=== PATIENT | male | born 1980 | race Caucasian/White ===

== ENCOUNTER 2018-01-08 13:45 | Observation (INO) | payer BC, OTHER ==
[~2018-01-08] VITALS: Ht 172.7 cm; Wt 65.0 kg
[~2018-01-08 13:45] MED LIST: Z.0.NO CURRENT MEDS
[2018-01-08 13:53] VITALS: BP 127/68; PULSE 83; RESP 20; TEMP 98.4; O2SAT 97
[2018-01-08 14:39] LABS: AUTOMATED NEUTROPHIL # 8.3 TH/MM3 (1.8-7.7); BASOPHIL % 0.3 % (0.0-2.0); EOSINOPHIL # 0.1 TH/MM3 (0-0.4); EOSINOPHIL % 0.6 % (0.0-4.0); HEMATOCRIT 39.9 % (39.0-51.0); HEMOGLOBIN 12.6 GM/DL (13.0-17.0); LYMPH % 21.7 % (9.0-44.0); LYMPHOCYTE # 2.6 TH/MM3 (1.0-4.8); MEAN CELL VOLUME 63.3 FL (80.0-100.0); MEAN CORPUSCULAR HEMOGLOBIN 19.9 PG (27.0-34.0); MEAN CORPUSCULAR HGB CONC 31.5 % (32.0-36.0); MEAN PLATELET VOLUME 8.2 FL (7.0-11.0); MONO % 9.6 % (0.0-8.0); MONOCYTE # 1.2 TH/MM3 (0-0.9); NEUT % 67.8 % (16.0-70.0); PLATELET COUNT 298 TH/MM3 (150-450); RED BLOOD COUNT 6.31 MIL/MM3 (4.50-5.90); WHITE BLOOD COUNT 12.2 TH/MM3 (4.0-11.0)
[2018-01-08 14:58] LABS: BLOOD UREA NITROGEN 13 MG/DL (7-18); CALCIUM 9.6 MG/DL (8.5-10.1); CHLORIDE 103 MEQ/L (98-107); CREATININE 1.04 MG/DL (0.60-1.30); GLOMERULAR FILTRATION RATE 80 ML/MIN (>89); GLUCOSE,RANDOM 85 MG/DL (74-106); SODIUM (NA) 140 MEQ/L (136-145)
[2018-01-08 15:02] LABS: TROPONIN I LESS THAN 0.02 NG/ML (0.02-0.05)
[2018-01-08 15:13] VITALS: BP_SYST 141; BP_SYST 143; BP_DIAS 76; BP_DIAS 86; PULSE 65; RESP 17; O2SAT 99
--- NOTE | 2018-01-08 15:40 | RADRPT ---
EXAM DATE: 01/08/2018 3:07 PM EDT AGE/SEX: 37 years / Male INDICATIONS: Chest pain and syncope. CLINICAL DATA: This is the patient's initial encounter. Patient reports that signs and symptoms have been present for 1 day and indicates a pain score of 6/10. MEDICAL/SURGICAL HISTORY: None. None. COMPARISON: No prior [place] exams available for comparison. FINDINGS: PA and lateral views of the chest demonstrate the lungs to be symmetrically aerated without evidence of mass, infiltrate or effusion. The cardiomediastinal contours are unremarkable. Osseous structures are intact. CONCLUSION: Negative examination. Electronically signed by: Tr Orr MD 01/08/2018 3:39 PM EDT
--- NOTE | 2018-01-08 16:47 | PD ---
HPI Chief Complaint: Cardiac Complaint Time Seen by Provider: 15:06 Travel History International Travel<30 days: No Contact w/Intl Traveler<30days: No Traveled to known affect area: No History of Present Illness HPI Patient is a 37-year-old male who presents the emergency room with complaints of chest pain. Patient reports that he began to have chest pain while at work today, reports that chest pain initially felt sharp and stabbing but now feels like pressure to his chest. Patient reports that he has been having shortness of breath with the symptoms. Reports that he has troubles with taking deep breath along with this chest pain. Patient reports that chest pain goes from his sub-sternum and radiates to his back, reports that nothing makes pain better or worse. Patient denies history of PE or DVT, patient is a smoker. Patient denies any history of hypertension or hyperlipidemia. Patient reports remote history of arrhythmia in the past. Patient with no family history of ACS or early SD. PFSH Past Medical History Heart Rhythm Problems: Yes Diminished Hearing: No Tetanus Vaccination: Unknown Influenza Vaccination: No Past Surgical History Surgical History: No Previous Surgery Social History Alcohol Use: Yes (2 DRINKS A WEEK) Tobacco Use: Yes (<1 ppd) Substance Use: No Allergies-Medications (Allergen,Severity, Reaction): Coded Allergies: No Known Allergies (Verified Adverse Reaction, Unknown, 01/08/18) Reported Meds & Prescriptions Reported Meds & Active Scripts Active No Active Prescriptions or Reported Medications Review of Systems General / Constitutional: No: Fever Eyes: No: Visual changes HENT: No: Headaches Cardiovascular: Positive: Chest Pain or Discomfort, Palpitations Respiratory: Positive: Shortness of Breath Gastrointestinal: No: Abdominal Pain Genitourinary: No: Dysuria Musculoskeletal: No: Pain Skin: No Rash Neurologic: No: Weakness Psychiatric: No: Depression Endocrine: No: Polydipsia Hematologic/Lymphatic: No: Easy Bruising Physical Exam Narrative GENERAL: NAD SKIN: Focused skin assessment warm/dry. HEAD: Atraumatic. Normocephalic. EYES: Pupils equal and round. No scleral icterus. No injection or drainage. ENT: No nasal bleeding or discharge. Mucous membranes pink and moist. NECK: Trachea midline. No JVD. CARDIOVASCULAR: Regular rate and rhythm. No murmur appreciated. RESPIRATORY: No accessory muscle use. Clear to auscultation. Breath sounds equal bilaterally. GASTROINTESTINAL: Abdomen soft, non-tender, nondistended. Hepatic and splenic margins not palpable. MUSCULOSKELETAL: No obvious deformities. No clubbing. No cyanosis. No edema. NEUROLOGICAL: Awake and alert. No obvious cranial nerve deficits. Motor grossly within normal limits. Normal speech. PSYCHIATRIC: Appropriate mood and affect; insight and judgment normal. Data Data Last Documented VS Vital Signs Date Time Temp Pulse Resp B/P (MAP) Pulse Ox O2 Delivery O2 Flow Rate FiO2 01/08/18 17:12 68 16 145/81 (102) 99 Room Air 01/08/18 13:53 98.4 Orders Orders Electrocardiogram (01/08/18 13:55) Complete Blood Count With Diff (01/08/18 13:55) Basic Metabolic Panel (Bmp) (01/08/18 13:55) Ckmb (Isoenzyme) Profile (01/08/18 13:55) Troponin I (01/08/18 13:55) Chest, Pa & Lat (01/08/18 13:55) CKMB (01/08/18 14:18) CKMB% (01/08/18 14:18) Electrocardiogram (01/08/18 ) Drug Screen, Random Urine (01/08/18 15:10) D-Dimer (01/08/18 15:10) Admit Order (Ed Use Only) (01/08/18 18:07) Aspirin Chew (Aspirin Chew) (01/08/18 18:15) Activity Bed Rest With Brp (01/08/18 18:08) Vital Signs (Adult) Q4H (01/08/18 18:08) Cardiac Rhythm .As Directed (01/08/18 18:08) Notify Dr: Other .PRN (01/08/18 18:08) Notify Parameters (01/08/18 18:08) Resp Oxygen Nasal Cannula (01/08/18 ) Diet Npo (01/08/18 Dinner) Ckmb (Isoenzyme) Profile (01/08/18 18:08) Ckmb (Isoenzyme) Profile (01/08/18 21:08) Troponin I (01/08/18 18:08) Troponin I (01/08/18 21:08) Electrocardiogram (01/08/18 18:08) Electrocardiogram (01/08/18 21:08) ^ Obtain (01/08/18 18:08) [employer] / Telemetry DILSHAD.Q8H (01/08/18 18:08) Labs Laboratory Tests Test 01/08/18 14:18 01/08/18 15:55 White Blood Count 12.2 TH/MM3 Red Blood Count 6.31 MIL/MM3 Hemoglobin 12.6 GM/DL Hematocrit 39.9 % Mean Corpuscular Volume 63.3 FL Mean Corpuscular Hemoglobin 19.9 PG Mean Corpuscular Hemoglobin Concent 31.5 % Red Cell Distribution Width 16.0 % Platelet Count 298 TH/MM3 Mean Platelet Volume 8.2 FL Neutrophils (%) (Auto) 67.8 % Lymphocytes (%) (Auto) 21.7 % Monocytes (%) (Auto) 9.6 % Eosinophils (%) (Auto) 0.6 % Basophils (%) (Auto) 0.3 % Neutrophils # (Auto) 8.3 TH/MM3 Lymphocytes # (Auto) 2.6 TH/MM3 Monocytes # (Auto) 1.2 TH/MM3 Eosinophils # (Auto) 0.1 TH/MM3 Basophils # (Auto) 0.0 TH/MM3 CBC Comment DIFF FINAL Differential Comment Blood Urea Nitrogen 13 MG/DL Creatinine 1.04 MG/DL Random Glucose 85 MG/DL Calcium Level 9.6 MG/DL Sodium Level 140 MEQ/L Potassium Level 4.6 MEQ/L Chloride Level 103 MEQ/L Carbon Dioxide Level 28.0 MEQ/L Anion Gap 9 MEQ/L Estimat Glomerular Filtration Rate 80 ML/MIN Total Creatine Kinase 186 U/L Creatine Kinase MB 1.8 NG/ML Troponin I LESS THAN 0.02 NG/ML D-Dimer Quantitative (PE/DVT) LESS THAN 0.19 MG/L FEU MDM Medical Decision Making Medical Screen Exam Complete: Yes Emergency Medical Condition: Yes Medical Record Reviewed: Yes Interpretation(s) EKG at 1407: NSR at 74bpm, qt/qtc: 352/380, hyperacute t waves Vital Signs Date Time Temp Pulse Resp B/P (MAP) Pulse Ox O2 Delivery O2 Flow Rate FiO2 01/08/18 15:13 65 17 141/76 (97) 99 Room Air 143/86 (105) 01/08/18 13:53 98.4 83 20 127/68 (87) 97 Differential Diagnosis ACS, arrhythmia, PE, aortic dissection, pneumothorax, pneumonia Narrative Course During the course of the patients emergency department visit, the patients history, examination, and differential diagnosis were reviewed with the patient. The patient was placed on a playground monitor with oximetry and frequent blood pressure monitoring. The patient had an IV access obtained and blood work sent for analysis. The patient was initially provided aspirin The patients laboratory studies were reviewed and remarkable for Laboratory Tests Test 01/08/18 14:18 01/08/18 15:55 White Blood Count 12.2 TH/MM3 (4.0-11.0) Red Blood Count 6.31 MIL/MM3 (4.50-5.90) Hemoglobin 12.6 GM/DL (13.0-17.0) Hematocrit 39.9 % (39.0-51.0) Mean Corpuscular Volume 63.3 FL (80.0-100.0) Mean Corpuscular Hemoglobin 19.9 PG (27.0-34.0) Mean Corpuscular Hemoglobin Concent 31.5 % (32.0-36.0) Red Cell Distribution Width 16.0 % (11.6-17.2) Platelet Count 298 TH/MM3 (150-450) Mean Platelet Volume 8.2 FL (7.0-11.0) Neutrophils (%) (Auto) 67.8 % (16.0-70.0) Lymphocytes (%) (Auto) 21.7 % (9.0-44.0) Monocytes (%) (Auto) 9.6 % (0.0-8.0) Eosinophils (%) (Auto) 0.6 % (0.0-4.0) Basophils (%) (Auto) 0.3 % (0.0-2.0) Neutrophils # (Auto) 8.3 TH/MM3 (1.8-7.7) Lymphocytes # (Auto) 2.6 TH/MM3 (1.0-4.8) Monocytes # (Auto) 1.2 TH/MM3 (0-0.9) Eosinophils # (Auto) 0.1 TH/MM3 (0-0.4) Basophils # (Auto) 0.0 TH/MM3 (0-0.2) CBC Comment DIFF FINAL Differential Comment Blood Urea Nitrogen 13 MG/DL (7-18) Creatinine 1.04 MG/DL (0.60-1.30) Random Glucose 85 MG/DL (74-106) Calcium Level 9.6 MG/DL (8.5-10.1) Sodium Level 140 MEQ/L (136-145) Potassium Level 4.6 MEQ/L (3.5-5.1) Chloride Level 103 MEQ/L (98-107) Carbon Dioxide Level 28.0 MEQ/L (21.0-32.0) Anion Gap 9 MEQ/L (5-15) Estimat Glomerular Filtration Rate 80 ML/MIN (>89) Total Creatine Kinase 186 U/L (39-308) Creatine Kinase MB 1.8 NG/ML (0.5-3.6) Troponin I LESS THAN 0.02 NG/ML D-Dimer Quantitative (PE/DVT) LESS THAN 0.19 MG/L FEU Radiology studies were reviewed and remarkable for Last Impressions Chest X-Ray 01/08/18 1355 Signed Impressions: CONCLUSION: Negative examination. Plan to admit for chest pain obs.. Diagnosis Primary Impression: Chest pain Qualified Codes: R07.9 - Chest pain, unspecified Admitting Information Admitting Physician Requests: Observation Scripts No Active Prescriptions or Reported Meds Francisca Boo DO Jan 08, 2018 16:47
[2018-01-08 17:12] VITALS: BP 145/81; PULSE 68; RESP 16; O2SAT 99
[2018-01-08] MEDS ORDERED: ASPIRIN 81 MG CHEW TAB PO ONE (18:15)
[2018-01-08 19:08] LABS: TROPONIN I LESS THAN 0.02 NG/ML (0.02-0.05)
[2018-01-08 19:46] VITALS: BP 140/72; PULSE 59; RESP 16; TEMP 98.9; O2SAT 96
[2018-01-08 21:40] LABS: TROPONIN I LESS THAN 0.02 NG/ML (0.02-0.05)
[2018-01-08 23:00] VITALS: BP 118/65; PULSE 57; PULSE 59; RESP 16; TEMP 98.5; O2SAT 94
[2018-01-09 03:13] VITALS: BP 124/78; PULSE 67; RESP 16; TEMP 98.3; O2SAT 97
[2018-01-09 07:40] VITALS: PULSE 49
[2018-01-09 08:59] VITALS: BP 143/67; PULSE 61; RESP 18; TEMP 98; O2SAT 94
--- NOTE | 2018-01-09 10:04 | HHI.HP ---
HPI Primary Care Physician No Primary Care Physician Chief Complaint Chest pain History of Present Illness This is a 37-year-old male with history of tobacco abuse that presents to ED the private vehicle with a complaint of developing chest discomfort while he was at work yesterday. He also is short of breath with it. Describes a pressure in the center of his chest. Her more take in a deep breath. No nausea or diaphoresis. Denies prior cardiac workup. Currently denies chest discomfort. Review of Systems General: Patient denies fevers, chills, and recent travel. HEENT: Patient denies headache, sore throat, difficulty swallowing. Cardiovascular: Has the chest discomfort as mentioned above. Denies sensation of heart beating rapidly or irregularly. No syncope. Denies diaphoresis. Respiratory: He was short of breath. He also felt as if the discomfort worsened when he took in a deep breath. Denies coughing wheezing or hemoptysis. GI: Patient denies nausea, vomiting, diarrhea, abdominal pain, bloody stools. Musculoskeletal: Patient denies joint pain or edema. Denies calf pain or edema. Neurovascular: Patient denies numbness, tingling, weakness in extremities. Denies headache. Endocrine: Denies polyuria and polydipsia. Hematologic: Denies easy bruising. Skin: Denies rash or itching. Past Family Social History Allergies: Coded Allergies: No Known Allergies (Verified Adverse Reaction, Unknown, 01/08/18) Past Medical History Tobacco abuse. Denies hypertension, hyperlipidemia, diabetes, and known CAD. Past Surgical History Denies prior surgery. Reported Medications Reported Meds & Active Scripts Active No Active Prescriptions or Reported Medications Family History Denies family history of CAD. Social History States he smokes one half pack of cigarettes daily and has done so for about 20 years. Occasional alcohol. Denies illicit drug use. Physical Exam Vital Signs Vital Signs Date Time Temp Pulse Resp B/P (MAP) Pulse Ox O2 Delivery O2 Flow Rate FiO2 01/09/18 08:59 98.0 61 18 143/67 (92) 94 01/09/18 07:40 49 01/09/18 03:13 98.3 67 16 124/78 (93) 97 01/08/18 23:00 98.5 57 16 118/65 (82) 94 01/08/18 23:00 59 01/08/18 19:46 98.9 59 16 140/72 (94) 96 01/08/18 18:48 01/08/18 17:12 68 16 145/81 (102) 99 Room Air 01/08/18 15:13 65 17 141/76 (97) 99 Room Air 143/86 (105) 01/08/18 13:53 98.4 83 20 127/68 (87) 97 Physical Exam GENERAL: This is a well-nourished, well-developed patient, in no apparent distress. Patient speaks in clear complete sentences. Patient is pleasant. HEENT: Head is atraumatic and normocephalic. Neck is supple without lymphadenopathy and trachea is midline. No JVD or carotid bruits. CARDIOVASCULAR: Regular rate and rhythm without murmurs, gallops, or rubs. RESPIRATORY: Clear to auscultation. Breath sounds equal bilaterally. No wheezes , rales, or rhonchi. Chest wall is nontender. No use of accessory muscles. GASTROINTESTINAL: Abdomen is nontender, nondistended. Abdomen soft. No obvious pulsatile mass or bruit. No CVA tenderness. Strong femoral pulses bilaterally. Normal bowel sounds in all quadrants. MUSCULOSKELETAL: Patient is moving upper and lower extremities freely. No calf tenderness or edema, no Homans sign. Strong pulses in upper and lower extremities. NEUROLOGICAL: Patient is alert and oriented. Cranial nerves 2-12 are grossly intact. No focal deficits and speech is clear. SKIN: No rash and turgor is normal. Laboratory Laboratory Tests Test 01/08/18 14:18 01/08/18 15:55 01/08/18 18:26 01/08/18 20:30 White Blood Count 12.2 Red Blood Count 6.31 Hemoglobin 12.6 Hematocrit 39.9 Mean Corpuscular Volume 63.3 Mean Corpuscular Hemoglobin 19.9 Mean Corpuscular Hemoglobin Concent 31.5 Red Cell Distribution Width 16.0 Platelet Count 298 Mean Platelet Volume 8.2 Neutrophils (%) (Auto) 67.8 Lymphocytes (%) (Auto) 21.7 Monocytes (%) (Auto) 9.6 Eosinophils (%) (Auto) 0.6 Basophils (%) (Auto) 0.3 Neutrophils # (Auto) 8.3 Lymphocytes # (Auto) 2.6 Monocytes # (Auto) 1.2 Eosinophils # (Auto) 0.1 Basophils # (Auto) 0.0 CBC Comment DIFF FINAL Differential Comment Blood Urea Nitrogen 13 Creatinine 1.04 Random Glucose 85 Calcium Level 9.6 Sodium Level 140 Potassium Level 4.6 Chloride Level 103 Carbon Dioxide Level 28.0 Anion Gap 9 Estimat Glomerular Filtration Rate 80 Total Creatine Kinase 186 189 175 Creatine Kinase MB 1.8 1.2 1.4 Troponin I LESS THAN 0.02 LESS THAN 0.02 LESS THAN 0.02 D-Dimer Quantitative (PE/DVT) LESS THAN 0.19 Result Diagram: 01/08/18 1418 01/08/18 1418 Caprini VTE Risk Assessment Caprini VTE Risk Assessment: No/Low Risk (score <= 1) Caprini Risk Assessment Model Point Value = 1 Point Value = 2 Point Value = 3 Point Value = 5 Age 41-60 Minor surgery BMI > 25 kg/m2 Swollen legs Varicose veins or History of unexplained or recurrent spontaneous Oral contraceptives or hormone replacement Sepsis (< 1 month) Serious lung disease, including pneumonia (< 1 month) Abnormal pulmonary function Acute myocardial infarction Congestive heart failure (< 1 month) History of inflammatory bowel disease Medical patient at bed rest Age 61-74 Arthroscopic surgery Major open surgery (> 45 min) Laparoscopic surgery (> 45 min) Malignancy Confined to bed (> 72 hours) Immobilizing plaster cast Central venous access Age >= 75 History of VTE Family history of VTE Factor V Leiden Prothrombin [id number] Lupus anticoagulant Anticardiolipin antibodies Elevated serum homocysteine Heparin-induced thrombocytopenia Other congenital or acquired thrombophilia Stroke (< 1 month) Elective arthroplasty Hip, pelvis, or leg fracture Acute spinal cord injury (< 1 month) Prophylaxis Regimen Total Risk Factor Score Risk Level Prophylaxis Regimen 0-1 Low Early ambulation 2 Moderate Order ONE of the following: *Sequential Compression Device (SCD) *Heparin 5000 units SQ BID 3-4 Higher Order ONE of the following medications: *Heparin 5000 units SQ TID *Enoxaparin/Lovenox 40 mg SQ daily (WT < 150 kg, CrCl > 30 mL/min) *Enoxaparin/Lovenox 30 mg SQ daily (WT < 150 kg, CrCl > 10-29 mL/min) *Enoxaparin/Lovenox 30 mg SQ BID (WT < 150 kg, CrCl > 30 mL/min) AND/OR *Sequential Compression Device (SCD) 5 or more Highest Order ONE of the following medications: *Heparin 5000 units SQ TID (Preferred with Epidurals) *Enoxaparin/Lovenox 40 mg SQ daily (WT < 150 kg, CrCl > 30 mL/min) *Enoxaparin/Lovenox 30 mg SQ daily (WT < 150 kg, CrCl > 10-29 mL/min) *Enoxaparin/Lovenox 30 mg SQ BID (WT < 150 kg, CrCl > 30 mL/min) AND *Sequential Compression Device (SCD) Assessment and Plan Assessment and Plan * Chest pain: Patient has had serial cardiac enzymes and EKGs were ruling out purposes. He was seen by Dr. Yuri Falcon of cardiology in the chest pain center. He will undergo a Fidel protocol ETT. He would be discharged home if his stress test is nonischemic with instructions to follow-up with PCP. Return to ED for interval issues. * Tobacco abuse: Patient has been counseled on importance of smoking cessation. Patient is stable at this time. He is agreeable to this plan. Maciel Jay Jan 09, 2018 10:04
--- NOTE | 2018-01-09 10:05 | HHI.DCPOC ---
Discharge Care Plan Diagnosis: (1) Tobacco abuse (2) Chest pain Goals to Promote Your Health * To prevent worsening of your condition and complications * To maintain your health at the optimal level Directions to Meet Your Goals Take your medications as prescribed Follow your dietary instruction Follow activity as directed Keep your appointments as scheduled Take your immunizations and boosters as scheduled If your symptoms worsen call your PCP, if no PCP go to Urgent Care Center or Emergency Room Smoking is Dangerous to Your Health. Avoid second hand smoke Call the 24-hour hour crisis hotline for domestic abuse at Maciel Jay Jan 09, 2018 10:05
--- NOTE | 2018-01-09 14:33 | EKG ---
Date Performed: 01/08/2018 Time Performed: 22:57:27 PTAGE: 37 years EKG: SINUS BRADYCARDIA VOLTAGE CRITERIA FOR LVH ABNORMAL ECG PREVIOUS TRACING : 01/08/2018 19.45 Since previous tracing, no significant change noted DOCTOR: Yuri Falcon Interpretating Date/Time 01/09/2018 14:31:58
--- NOTE | 2018-01-09 14:34 | EKG ---
Date Performed: 01/08/2018 Time Performed: 19:45:26 PTAGE: 37 years EKG: SINUS BRADYCARDIA WITH SINUS ARRHYTHMIA POSSIBLE LEFT ATRIAL ENLARGEMENT POSSIBLE LEFT VENT RICULAR HYPERTROPHY ABNORMAL ECG PREVIOUS TRACING : 01/08/2018 18.20 Since previous tracing, no significant change noted DOCTOR: Yuri Falcon Interpretating Date/Time 01/09/2018 14:32:56
--- NOTE | 2018-01-09 14:35 | EKG ---
Date Performed: 01/08/2018 Time Performed: 18:20:48 PTAGE: 37 years EKG: Sinus rhythm WITH SINUS ARRHYTHMIA POSSIBLE LEFT ATRIAL ENLARGEMENT POSSIBLE LEFT VENTRICULAR HYPERTROPHY MINIMAL ST DEPRESSION ABNORMAL ECG PREVIOUS TRACING : 01/08/2018 14.07 Since previous tracing, no significant change noted DOCTOR: Yuri Falcon Interpretating Date/Time 01/09/2018 14:33:09
--- NOTE | 2018-01-09 14:36 | EKG ---
Date Performed: 01/08/2018 Time Performed: 14:07:52 PTAGE: 37 years EKG: Sinus rhythm POSSIBLE RIGHT ATRIAL ENLARGEMENT POSSIBLE LEFT ATRIAL ENLARGEMENT POSSIBLE LEFT VENTRICULAR HYPERTR OPHY ABNORMAL ECG PREVIOUS TRACING : 07/27/2011 15.36 Since previous tracing, no significant change noted DOCTOR: Yuri Falcon Interpretating Date/Time 01/09/2018 14:33:45
--- NOTE | 2018-01-09 14:37 | TR ---
Date Performed: 01/09/2018 Time Performed: 09:35:52 DOCTOR: Yuri Falcon DRUG LIST: CLINICAL HISTORY: CHEST PAIN REASON FOR TEST: REASON FOR ENDING: OBSERVATION: CONCLUSION: BAKARI PROTOCOL. NO CP. TEST STOPPED AFTER EXCEEDING GOAL HR SECONDARY TO SOB AND LEG FATIGUE.Maximum SZ=530 % Max HR Achieved=91.0% Maximum WH=718/70 Total Exercise Time=11:00 COMMENTS: Patient exercised using the Bakari protocol. No electrocardiographic changes were seen to suggest ischemia. Hemodynamic response to exercise was normal. No significant arrhythmia was prese nt.
== END 2018-01-09 12:50 | disposition home or self-care (01) ==
LOC: NEPC 13:45 → NEDA 18:08 → NEPFCDU 18:48
PROVIDERS: ADMIT Internal Medicine Interventional Cardiology; ATTEND Internal Medicine Interventional Cardiology
DX: R07.9 Chest pain, unspecified (principal); R94.31 Abnormal electrocardiogram [ECG] [EKG]; F17.200 Nicotine dependence, unspecified, uncomplicated
CPT/HCPCS: 71046; 80048; 82550; 82552; 84484; 85025; 85379; 93005; 93017; 99285; G0378